=== PATIENT | male | born 1955 | race Caucasian/White ===

== ENCOUNTER 2018-09-17 01:49 | Day surgery (SDC) | payer OTHER ==
[~2018-09-17] VITALS: Ht 185.4 cm; Wt 138.8 kg
[~2018-09-17 01:49] MED LIST: ASCO-244 PO; ASPI81TA94 PO; ATOR10TA24 PO; CANA300T PO; DOCU100C49 PO; EMPA1TAB3 PO; GLIM1TAB25 PO; GLIM4TAB50 PO; KET10 PO; LISI20TA29 PO; METF-452 PO; NORMOSOL R SOLN(*) 1000 ML BAG 1,000 ML IV PRN; ONDA4TAB PO; PER PO; PSYL0.525 PO; TAMS0.4C25 PO; VIT1CAPS29 PO
[2018-09-17 06:01] VITALS: BP 136/72
[2018-09-17] MEDS ORDERED: NORMOSOL R SOLN(*) 1000 ML BAG 1,000 ML IV PRN (06:30)
[2018-09-17] MEDS ORDERED: PROPOFOL EMUL(*) 10MG/ML 20 ML 60 ML ONE (07:10)
[2018-09-17] MEDS ORDERED: LIDOCAINE MPF 1% 5 ML VIAL ONE (07:10)
[2018-09-17 08:02] VITALS: BP 107/72
[2018-09-17 08:17] VITALS: BP 111/73
[2018-09-17 08:30] VITALS: BP 117/79
[2018-09-17 08:32] VITALS: BP 124/74
[2018-09-17] MEDS ORDERED: LIDOCAINE/SOD BICARB 8.4% SYR ID ONE (11:30)
== END 2018-09-17 08:45 | disposition home or self-care (01) ==
LOC: OR 01:49
PROVIDERS: ATTEND Family Medicine
DX: Z12.11 Encounter for screening for malignant neoplasm of colon (principal); K63.5 Polyp of colon; I10 Essential (primary) hypertension; E11.9 Type 2 diabetes mellitus without complications; E66.01 Morbid (severe) obesity due to excess calories; Z68.41 Body mass index [BMI] 40.0-44.9, adult
CPT/HCPCS: 00811; 36416; 45385; 82948; 88305; J2001; J2704